=== PATIENT | male | born 2000 | race Caucasian/White ===

== ENCOUNTER 2024-03-14 04:22 | Emergency (ER) | payer SELFPAY ==
[~2024-03-14] VITALS: Ht 170.2 cm; Wt 77.3 kg
[2024-03-14 04:27] VITALS: TEMP 97
[2024-03-14] MEDS ORDERED: Mag/Al Hydrox/Simeth Susp 30 ML CUP PO ONE ×2 (04:45→07:00)
[2024-03-14 05:32] LABS: BASO # 0.1 K/mm3 (0.0-0.2); BASO % 0.8 % (0.0-2.0); EOS # 0.2 K/mm3 (0.0-0.7); EOS % 2.6 % (0.0-4.0); GRAN # 4.6 K/mm3 (1.4-6.5); GRAN % 55.4 % (42.2-75.2); HEMATOCRIT 45.6 % (42.0-52.0); HEMOGLOBIN 15.8 g/dl (13.5-18.0); LYMPH # 2.4 K/mm3 (1.2-3.4); LYMPH % 29.2 % (20.0-51.0); MEAN CELL VOLUME 82 fl (80.0-100.0); MEAN CORPUSCULAR HEMOGLOBIN 29 pg (27-31); MEAN CORPUSCULAR HGB CONC 35 g/dl (33.0-37.0); MEAN PLATELET VOLUME 9.3 fl (7.4-10.4); MONO % 11.8 % (1.7-9.3); PLATELET COUNT 373 K/mm3 (130-400); RED BLOOD COUNT 5.55 M/mm3 (4.20-5.60); REDCELL DISTRIBUTION WIDTH-CV 13.2 % (11.5-14.5)
[2024-03-14 05:55] LABS: ALBUMIN 4.4 g/dL (3.5-5.0); BILIRUBIN,TOTAL 0.8 mg/dL (0.2-1.2); CALCIUM 10.2 mg/dL (8.4-10.2); CREATININE, serum 0.96 mg/dL (0.72-1.25); POTASSIUM 3.9 mEq/L (3.5-4.5); TOTAL PROTEIN 8.1 g/dl (6.2-8.1)
[2024-03-14] MEDS ORDERED: PRILOSEC 20MG20 MG PO (07:32)
[2024-03-14 07:52] VITALS: BP 143/93; PULSE 77
== END 2024-03-14 07:52 | disposition home or self-care (01) ==
LOC: COL.ER 04:22
PROVIDERS: Emergency Medicine
DX: R10.13 Epigastric pain (principal); R07.9 Chest pain, unspecified; Z87.891 Personal history of nicotine dependence